=== PATIENT | female | born 1965 | race Caucasian/White ===

== ENCOUNTER 2024-06-27 07:48 | Day surgery (SDC) | payer MEDICAID, OTHER ==
[~2024-06-27] VITALS: Ht 160 cm; Wt 52.2 kg
[2024-06-27] MEDS ORDERED: MIDAZOLAM HCL 5 MG/5 ML VIAL ONE (10:11)
[2024-06-27] MEDS ORDERED: MEPERIDINE 100 MG INJ. 100 MG/ML VIAL ONE (10:11)
[2024-06-27 14:42] VITALS: O2SAT 99
[2024-06-27 15:19] VITALS: BP_SYST 117; PULSE 63; RESP 18
== END 2024-06-27 12:15 | disposition home or self-care (01) ==
LOC: SMU 07:48 → SDS 07:48 → SMU 11:52 → SDS 12:15
PROVIDERS: ATTEND Student in an Organized Health Care Education/Training Program
DX: K59.00 Constipation, unspecified (principal); K29.50 Unspecified chronic gastritis without bleeding; K31.89 Other diseases of stomach and duodenum; K31.A0 Gastric intestinal metaplasia, unspecified; K21.9 Gastro-esophageal reflux disease without esophagitis; R63.4 Abnormal weight loss; R10.13 Epigastric pain; K64.4 Residual hemorrhoidal skin tags; K64.8 Other hemorrhoids; Z68.20 Body mass index [BMI] 20.0-20.9, adult; Z98.891 History of uterine scar from previous surgery; Z79.899 Other long term (current) drug therapy
CPT/HCPCS: 45378; 43239; 88305; 88312; 88313; 99152; 99153; G0378; J2250; J2175